=== PATIENT | female | born 1980 | race Caucasian/White ===

== ENCOUNTER → 2017-07-15 09:27 | Outpatient (CLI) | payer BC, SELFPAY ==
[2017-07-15 10:38] LABS: Add Manual Diff / Slide Review NO; Basophils Percent Auto 0.4 % (0-2); Eosinophils Percent Auto 1.8 % (2-4); Hematocrit 38.4 % (36-46); Hemoglobin 13.2 g/dL (12.0-16.0); Lymphocytes Percent Auto 28.1 % (25-40); Mean Corpuscular HGB Conc 34.3 % (30-36); Mean Corpuscular Volume 90.4 fL (80-100); Monocytes Percent Auto 5.9 % (3-14); Neutrophils Absolute Auto 5400 /uL (3000-5900); Neutrophils Percent Auto 63.8 % (50-75); Platelet Count 221 X10^3/uL (150-400); Red Blood Cell Count 4.25 X10^6/uL (4.0-5.2); Red Cell Distribution Width 13.2 % (11.6-14.8); White Blood Cell Count 8.4 X10^3/uL (4.5-11.0)
[2017-07-15 11:12] LABS: Alanine Aminotransferase 28 IU/L (9-52); Albumin 4.2 g/dL (3.5-5.0); Albumin Globulin Ratio 1.5 (1.0-2.8); Alkaline Phosphatase 50 U/L (38-126); Aspartate Aminotransferase 23 IU/L (14-36); BUN Creatinine Ratio 16.7 (6-22); Bilirubin Total 0.4 mg/dL (0.2-1.3); Calcium 8.8 mg/dL (8.4-10.2); Cholesterol 172 mg/dL (140-199); Estimated Glomerular Filt Rate > 60.0 mL/min (>60); Globulin 2.8 g/dL (1.7-4.1); Glucose 95 mg/dL (70-100); HDL Cholesterol 62 mg/dL (40-60); HEMOLYSIS < 15 (0-50); LDL Cholesterol Calculated 92 mg/dL (<100); Potassium 3.9 mmol/L (3.4-5.1); Sodium 142 mmol/L (137-145); Triglycerides 92 mg/dL (35-150)
[2017-07-15 11:46] LABS: HIV 1 and 2 Antibody NEGATIVE (NEGATIVE)
[2017-07-15 12:57] LABS: Urine N gonorrhoeae NOT DETECTED
[2017-07-15 13:06] LABS: Urine Chlamydia NOT DETECTED
[2017-07-19 09:28] LABS: Hepatitis A Antibody IgM NONREACTIVE; Hepatitis Acute Panel Interp 0.01; Hepatitis B Core Antibody IgM NONREACTIVE; Hepatitis B Surface Antigen NONREACTIVE; Hepatitis C Antibody NONREACTIVE
== END ==
PROVIDERS: PCP Family Medicine; Visit Provider Family Medicine
DX: I10 Essential (primary) hypertension (principal); Z72.51 High risk heterosexual behavior
CPT/HCPCS: 36415; 80053; 80061; 80074; 84443; 85025; 86703; 87491; 87591

== ENCOUNTER → 2019-12-03 11:52 | Outpatient (CLI) | payer OTHER, SELFPAY ==
[2019-12-03 12:57] LABS: Alanine Aminotransferase 18 IU/L (<35); Albumin 4.2 g/dL (3.5-5.0); Albumin Globulin Ratio 1.7 (1.0-2.8); Alkaline Phosphatase 50 U/L (38-126); Aspartate Aminotransferase 20 IU/L (14-36); BUN Creatinine Ratio 15.1 (6-22); Bilirubin Total 0.6 mg/dL (0.2-1.3); Blood Urea Nitrogen 11 mg/dL (7-17); Calcium 9.3 mg/dL (8.4-10.2); Carbon Dioxide 28 mmol/L (22-32); Chloride 102 mmol/L (98-107); Cholesterol 173 mg/dL (140-199); Estimated Glomerular Filt Rate > 60.0 mL/min (>60); Globulin 2.5 g/dL (1.7-4.1); Glucose 95 mg/dL (70-100); HDL Cholesterol 75 mg/dL (40-60); HEMOLYSIS < 15 (0-50); LDL Cholesterol Calculated 76 mg/dL (<100); Potassium 4.4 mmol/L (3.4-5.1); Sodium 136 mmol/L (137-145); Total Protein 6.7 g/dL (6.3-8.2); Triglycerides 112 mg/dL (35-150)
[2019-12-03 15:58] LABS: Creatinine Urine Random 205.9 mg/dL
[2019-12-03 16:04] LABS: Microalbumi Creatinin Ratio Ur 7.2 ug/mg CR (<30); Microalbumin Urine Random 1.5 mg/dL (0-1.6)
== END ==
PROVIDERS: Family Provider Family Medicine; PCP Family Medicine; Referring Provider Family Medicine; Visit Provider Family Medicine
DX: I10 Essential (primary) hypertension (principal)
CPT/HCPCS: 36415; 80053; 80061; 82043; 82570

== ENCOUNTER → 2021-03-06 09:21 | Outpatient (CLI) | payer OTHER, SELFPAY ==
[2021-03-06 10:45] LABS: COVID19 -Nasal RAPID POSITIVE (Negative)
== END ==
PROVIDERS: Family Provider Family Medicine; PCP Family Medicine; Visit Provider Nurse Practitioner Family
DX: U07.1 COVID-19 (principal); Z20.822 Contact with and (suspected) exposure to COVID-19
CPT/HCPCS: 87635

== ENCOUNTER → 2022-11-02 10:09 | Outpatient (CLI) | payer OTHER, MEDICAID, SELFPAY ==
--- NOTE | 2022-11-02 10:13 | DI.RAD.S_ITS ---
PROCEDURE: XR SHOULDER RT MIN 2V INDICATIONS: Fell 09/08 - fx R prox humerus; limited ROM; pain TECHNIQUE: 3 views of the shoulder were acquired. COMPARISON: None. FINDINGS: Bones: Comminuted displaced fracture of the proximal right humerus with displacement and callus formation. Soft tissues: No suspicious soft tissue calcifications. IMPRESSION: Healing comminuted and displaced proximal right humerus fracture. Dictated by: Nick Goldstein M.D. on 11/02/2022 at 13:35 Approved by: Nick Goldstein M.D. on 11/02/2022 at 13:36
== END ==
PROVIDERS: Family Provider Family Medicine; PCP Family Medicine; Referring Provider Physician Assistant; Visit Provider Physician Assistant
DX: S42.201D Unspecified fracture of upper end of right humerus, subsequent encounter for fracture with routine healing (principal); M25.511 Pain in right shoulder; W19.XXXD Unspecified fall, subsequent encounter
CPT/HCPCS: 73030

== ENCOUNTER → 2022-12-01 08:58 | Outpatient (CLI) | payer OTHER, MEDICAID, SELFPAY ==
[2022-12-01 09:58] LABS: Add Manual Diff / Slide Review NO; Basophils Absolute Auto 100 /uL (0-100); Basophils Percent Auto 1.3 % (0-2); Eosinophils Absolute Auto 100 /uL (0-450); Hematocrit 38.7 % (36-46); Hemoglobin 13.4 g/dL (12.0-16.0); Lymphocytes Absolute Auto 2600 /uL (1100-4500); Lymphocytes Percent Auto 39.7 % (25-40); Mean Corpuscular HGB Conc 34.5 % (30-36); Mean Corpuscular Hemoglobin 30.7 PG (26-34); Monocytes Absolute Auto 400 /uL (0-900); Neutrophils Absolute Auto 3400 /uL (1500-7000); Platelet Count 223 X10^3/uL (150-400); Red Blood Cell Count 4.35 X10^6/uL (4.0-5.2); Red Cell Distribution Width 12.7 % (11.6-14.8); White Blood Cell Count 6.6 X10^3/uL (4.5-11.0)
[2022-12-01 10:10] LABS: Hemoglobin A1C% w Est Avg Glu 4.8 % (4.0-6.0)
[2022-12-01 10:21] LABS: Alanine Aminotransferase 11 IU/L (<35); Albumin 4.2 g/dL (3.5-5.0); Albumin Globulin Ratio 1.7 (1.0-2.8); Alkaline Phosphatase 60 U/L (38-126); Aspartate Aminotransferase 17 IU/L (14-36); BUN Creatinine Ratio 16.1 (6-22); Bilirubin Total 0.3 mg/dL (0.2-1.3); Blood Urea Nitrogen 10 mg/dL (7-17); Calcium 9.3 mg/dL (8.4-10.2); Carbon Dioxide 26 mmol/L (22-32); Chloride 100 mmol/L (98-107); Cholesterol 181 mg/dL (140-199); Estimated Glomerular Filt Rate > 60 mL/min (>60); Globulin 2.5 g/dL (1.7-4.1); Glucose 88 mg/dL (70-100); HDL Cholesterol 82 mg/dL (40-60); HEMOLYSIS < 15 (0-50); LDL Cholesterol Calculated 84 mg/dL (<100); Potassium 4.2 mmol/L (3.4-5.1); Sodium 136 mmol/L (137-145); Total Protein 6.7 g/dL (6.3-8.2); Triglycerides 73 mg/dL (35-150)
[2022-12-01 10:58] LABS: Microalbumi Creatinin Ratio Ur 10.3 ug/mg CR (<30); Microalbumin Urine Random 0.6 mg/dL (0-1.6)
== END ==
PROVIDERS: Family Provider Family Medicine; PCP Family Medicine; Referring Provider Family Medicine; Visit Provider Family Medicine
DX: I10 Essential (primary) hypertension (principal); E66.9 Obesity, unspecified
CPT/HCPCS: 36415; 80053; 80061; 82043; 82570; 83036; 85025

== ENCOUNTER 2022-12-17 08:15 | Outpatient (RCR) | payer OTHER, MEDICAID, SELFPAY ==
--- NOTE | 2022-11-29 16:05 | PT.OIE ---
Current Diagnoses Pain in right shoulder (11/29/22) Soft tissue disorder, unspecified (11/29/22) Weakness (11/29/22) Unspecified fracture of upper end of right humerus, subsequent encounter for fracture with malunion (11/29/22) Past Surgical History (Last Updated 05/24/22 @ 11:43 by Darcy Reeder MD) History of tonsillectomy Hx of bariatric surgery Status post hernia repair Status post tubal ligation (07/09/16) Visit Care Team Role Provider Type Darcy Reeder MD Family Provider Physician Primary Care Provider Specialty: Family Practice Address: [address] [place] [address], [facility] [[email or web address]] [place], [address] Email: [email or web address] Donn Montana DO Attending Provider Non-Staff Referring Provider Specialty: Orthopedics Address: [address] [place] [address], [id number] Email: Physical Therapy Initial Evaluation PT-OP-A Visit Information Start: 11/25/22 17:23 Freq: Status: Active Protocol: Document 11/29/22 07:59 SAK (Rec: 11/29/22 08:45 SAK [id number]) Out-Patient Physical Therapy Visit Information Visit Information Visit Type Initial Evaluation Visit Start Time 08:00 Visit Stop Time 08:43 Total Visit Minutes 45 Visit Number 1 Evaluation Information Evaluation Date 11/29/22 PT-OP-B Current Condition Start: 11/25/22 17:23 Freq: Status: Active Protocol: Document 11/29/22 07:59 SAK (Rec: 11/29/22 08:45 [facility] [id number]) Current Condition History of Current Condition Onset Date 09/08/22 Current Complaints right shoulder pain and dec ROM History of Current Condition fell 09/08/22 and sustained comminuted and displaced right proximal humerus fracture. Wore sling for 6 weeks. Difficulty with movement overhead, behind back, bad pain top of shoulder and in axilla at night; achy and sharp, interrupting sleep. Denies N/T except in right scapular region. No treatment except told to do wall walks, tried to keep shoulder moving. No ice or heat. X- ray October still not fully healed, MD recommended no lifting anythig more heavy than cell phone. Also c/o clicking in shoulder. Prior Treatments and Tests no treatment Future Testing and Treatments Planned back to Dr. Montana 12/13/22. Treatment Goals Patient/Caregiver Goals Regain full active use of her shoulder to allow her to return to work and all prior activities Prior Functional Status Baseline Function- ADL's Independent Baseline Function- Mobility Independent Baseline Function- Work/School works as hairdresser Baseline Function- Recreation/Hobbies hikes Current Functional Impairments (Reported) Functional Limitations- ADL's painful and limited ROM; unable to reach overhead or behind back Functional Limitations- Work/School unable to work PT-OP-C Subjective Start: 11/25/22 17:23 Freq: Status: Active Protocol: Document 11/29/22 15:40 SAK (Rec: 11/29/22 16:04 [facility] [id number]) Patient Questionnaires Quick Dash- Upper Extremity Quick Dash UE Score 68 OP-PT Pain Assessment Pain Assessment Grid Paper Pain Assessment Grid Completed Yes Location right shoulder and neck Intensity 7 Scale Used Numeric (0 - 10) Description Aching,Sharp,Shooting,With Movement Pain Behaviors Pain Behaviors Facial Grimacing,Guarding, Wincing Comments Pain Comments interrupts sleep PT-OP-H Neuro Start: 11/25/22 17:23 Freq: Status: Active Protocol: Document 11/29/22 15:40 SAK (Rec: 11/29/22 16:04 [facility] [id number]) Sensation Evaluation Gross Sensation Gross Sensation WNL PT-OP-J Posture/Palpation/Skin Start: 11/25/22 17:23 Freq: Status: Active Protocol: Document 11/29/22 07:59 SAK (Rec: 11/29/22 08:45 [facility] [id number]) Posture Evaluation Position Sitting Head/C-Spine Posture Forward Head T-Spine Posture Increased Kyphosis Shoulder Posture (L) Rounded,(R) Rounded Scapula Posture (L) Neutral,(R) Protracted,(R) Winged Arm Posture (L) Internally Rotated,(R) Internally Rotated Palpation Assessment Location right prox humerus Palpation Details bony callus palpated, mod tenderness PT-OP-K Range of Motion Start: 11/25/22 17:23 Freq: Status: Active Protocol: Document 11/29/22 07:59 SAK (Rec: 11/29/22 08:45 [facility] [id number]) Cervical Spine Range of Motion Cervical Spine Active Testing Position Sitting Comments WNL Shoulder Goniometric Range of Motion Shoulder Right Active Shoulder ROM WFL No Flexion 121 Extension 32 Abduction 112 External Rotation at 45 degrees 52 Abduction External Rotation at 0 degrees Abduction 22 Internal Rotation 27 Internal Rotation Behind Back (text) back pocket Left Active Shoulder ROM WFL Yes Shoulder ROM Limitations Shoulder ROM Limitations Soft Tissue Tightness,Bony Restriction,Pain Comments flex 132 passive Elbow/Forearm Range of Motion Elbow/Forearm michael Elbow/Forearm ROM WFL Yes PT-OP-M Strength Start: 11/25/22 17:23 Freq: Status: Active Protocol: Document 11/29/22 15:40 SAK (Rec: 11/29/22 16:04 [facility] [id number]) Shoulder Strength Shoulder Manual Muscle Testing Right Comments grossly 3-/5, no MMT due to acuteness of injury Left Flexion 5 Normal Extension 5 Normal Abduction (C5) 5 Normal Adduction 5 Normal External Rotation 5 Normal Internal Rotation 5 Normal PT-OP-Q Treatments Start: 11/25/22 17:23 Freq: Status: Active Protocol: Document 11/29/22 15:40 [facility] (Rec: 11/29/22 16:04 [facility] [id number]) Self-Care/Home Management Treatment Education Patient Education Home Exercise Program,Pain Management,Posture Other Education issued written HEP PT-OP-R Modalities Start: 11/25/22 17:23 Freq: Status: Active Protocol: Document 11/29/22 15:40 SAK (Rec: 11/29/22 16:04 [facility] [id number]) Hot Pack/Cold Pack Treatment Cold Pack Location right shoulder Treatment Duration (minutes) 10 Comments during pt ed for HEP PT-OP-T Assessment and Plan Start: 11/25/22 17:23 Freq: Status: Active Protocol: Document 11/29/22 15:40 [facility] (Rec: 11/29/22 16:04 [facility] [id number]) Physical Therapy Assessment Rehab Potential Rehabilitation Potential Good Evaluation Complexity Number of Personal Factors/Comorbidities 1-2 Number of Body Systems Impaired 3 Clinical Presentation at Evaluation Evolving Impairments Impairments Activity Tolerance,Pain,ROM, Strength Goals weakness right shoulder Impairment grossly 3-/5 Short Term Goal (STG) Initiate right shoulder strengthening when approved by physician STG Duration 12/30/22 Snf Goal (LTG) Right shoulder strength at least 4/5 all motions to allow patient to return to all usual activities using right shoulder Three Impairment pain as high as 7/10, interupting sleep Short Term Goal (STG) Decrease pain to no greater than 4/10 STG Duration 12/30/22 Snf Goal (LTG) Decrease pain to no greater than 2/10 to allow patient to resume normal sleep pattern LTG Duration 01/29/23 Two Impairment activity tolerance Impairment Quickdash UE disability score 68% Short Term Goal (STG) Decrease Quickdash score to no greater than 50% as measure of improved activity tolerance STG Duration 12/30/22 Snf Goal (LTG) Decrease Quickdash score to no greater than 25% as measure of improved activity tolerance LTG Duration 01/29/23 One Impairment Impaired ROM right shoulder Impairment unable to reach overhead or behind her back to perform ADL 's and work activities Short Term Goal (STG) Patient to be instructed in progressive, individualized HEP for purposes of right shoulder ROM STG Duration 12/30/22 Snf Goal (LTG) Patient to demonstrate full AROM right shoulder LTG Duration 01/29/23 Assessment Summary Assessment Patient referred to PT s/p fall in which she sustained right displaced comminuted right humeral fracture 09/08/22 . x-ray in October showed not fully healed. Referral from physician orders ROM and stretching, hold off on strengthening until returns to physician. Patient limited in all motions with some impingement symptoms with elevation. Patient reporting pain as high as 7/10 in shoulder and neck. 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 POC was discussed and patient is in agreement. Physical Therapy Plan Frequency and Duration Frequency of Treatment 2x/Week Duration of treatment (weeks) 8 Plan of Care Start Date 11/29/22 Plan of Care End Date 01/29/23 Therapeutic Interventions Therapeutic Interventions Home Exercise Program,Manual Therapy,Patient/Caregiver Education,Self-Care/Home Management,Soft Tissue Mobilization,Taping, Therapeutic Activities, Therapeutic Exercises Modalities Cold Pack/Ice Massage,Electric Stimulation,Hot Packs, Infrared Therapy,Iontophoresis ,Ultrasound Next Visit Focus/Plan Next Note Type Treatment Note Next Visit Plan Review HEP, gentle progression of ROM exercises. Manual therapy to improve scapular and soft tissue mobility and dec pain. Modalities PRN.
--- NOTE | 2022-11-29 16:06 | PT.OPPOC ---
Physical, Occupational & Speech Therapy At [facility] Current Diagnoses Pain in right shoulder (11/29/22) Soft tissue disorder, unspecified (11/29/22) Weakness (11/29/22) Unspecified fracture of upper end of right humerus, subsequent encounter for fracture with malunion (11/29/22) Visit Care Team Role Provider Type Darcy Reeder MD Family Provider Physician Primary Care Provider Specialty: Family Practice Address: [address] [place] [address], [facility] [place], [address] Email: [email or web address] Donn Montana DO Attending Provider Non-Staff Referring Provider Specialty: Orthopedics Address: [facility] [place], [address] Email: Plan Of Care PT-OP-T Assessment and Plan Start: 11/25/22 17:23 Freq: Status: Active Protocol: Document 11/29/22 15:40 SAK (Rec: 11/29/22 16:04 SAK [id number]) Physical Therapy Assessment Rehab Potential Rehabilitation Potential Good Evaluation Complexity Number of Personal Factors/Comorbidities 1-2 Number of Body Systems Impaired 3 Clinical Presentation at Evaluation Evolving Impairments Impairments Activity Tolerance,Pain,ROM, Strength Goals weakness right shoulder Impairment grossly 3-/5 Short Term Goal (STG) Initiate right shoulder strengthening when approved by physician STG Duration 12/30/22 Hospital [facility] Goal (LTG) Right shoulder strength at least 4/5 all motions to allow patient to return to all usual activities using right shoulder Three Impairment pain as high as 7/10, interupting sleep Short Term Goal (STG) Decrease pain to no greater than 4/10 STG Duration 12/30/22 Hospital [facility] Goal (LTG) Decrease pain to no greater than 2/10 to allow patient to resume normal sleep pattern LTG Duration 01/29/23 Two Impairment activity tolerance Impairment Quickdash UE disability score 68% Short Term Goal (STG) Decrease Quickdash score to no greater than 50% as measure of improved activity tolerance STG Duration 12/30/22 Hospital Carrier Goal (LTG) Decrease Quickdash score to no greater than 25% as measure of improved activity tolerance LTG Duration 01/29/23 One Impairment Impaired ROM right shoulder Impairment unable to reach overhead or behind her back to perform ADL 's and work activities Short Term Goal (STG) Patient to be instructed in progressive, individualized HEP for purposes of right shoulder ROM STG Duration 12/30/22 Hospital Carrier Goal (LTG) Patient to demonstrate full AROM right shoulder LTG Duration 01/29/23 Assessment Summary Assessment Patient referred to PT s/p fall in which she sustained right displaced comminuted right humeral fracture 09/08/22 . x-ray in October showed not fully healed. Referral from physician orders ROM and stretching, hold off on strengthening until returns to physician. Patient limited in all motions with some impingement symptoms with elevation. Patient reporting pain as high as 7/10 in shoulder and neck. 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 POC was discussed and patient is in agreement. Physical Therapy Plan Frequency and Duration Frequency of Treatment 2x/Week Duration of treatment (weeks) 8 Plan of Care Start Date 11/29/22 Plan of Care End Date 01/29/23 Therapeutic Interventions Therapeutic Interventions Home Exercise Program,Manual Therapy,Patient/Caregiver Education,Self-Care/Home Management,Soft Tissue Mobilization,Taping, Therapeutic Activities, Therapeutic Exercises Modalities Cold Pack/Ice Massage,Electric Stimulation,Hot Packs, Infrared Therapy,Iontophoresis ,Ultrasound Next Visit Focus/Plan Next Note Type Treatment Note Next Visit Plan Review HEP, gentle progression of ROM exercises. Manual therapy to improve scapular and soft tissue mobility and dec pain. Modalities PRN. Plan of Care Dates Plan of Care Start Date 11/29/22 Plan of Care End Date 01/29/23 Electronically Signed by: Lydia Aguirre PT 11/29/22 4801 If you are in agreement with this Plan of Care, please return a signed and dated copy. I have reviewed this Plan of Care and certify that the skilled therapy services above are required to meet the patient?s needs. Physician Signature Date Printed Name and Credentials Clinical Instructor Signature Printed Name and Credentials
--- NOTE | 2022-12-07 18:40 | PT.OTN ---
Current Diagnoses Pain in right shoulder (12/07/22) Soft tissue disorder, unspecified (12/07/22) Weakness (12/07/22) Unspecified fracture of upper end of right humerus, subsequent encounter for fracture with malunion (12/07/22) Physical Therapy Treatment Note PT-OP-A Visit Information Start: 11/25/22: Freq: Status: Active Protocol: Document 12/07/22 07:58 SAK (Rec: 12/07/22 08:46 [facility] [id number]) Out-Patient Physical Therapy Visit Information Visit Information Visit Type Treatment Note Visit Start Time 07:58 Visit Stop Time 08:40 Total Visit Minutes 42 Visit Number 3 PT-OP-B Current Condition Start: 11/25/22: Freq: Status: Active Protocol: Document 12/07/22 07:58 SAK (Rec: 12/07/22 08:46 SAK [id number]) Current Condition History of Current Condition Onset Date 09/08/22 Current Complaints right shoulder pain and dec ROM History of Current Condition fell 09/08/22 and sustained comminuted and displaced right proximal humerus fracture. Wore sling for 6 weeks. Difficulty with movement overhead, behind back, bad pain top of shoulder and in axilla at night; achy and sharp, interrupting sleep. Denies N/T except in right scapular region. No treatment except told to do wall walks, tried to keep shoulder moving. No ice or heat. X- ray Jessica still not fully healed, MD recommended no lifting anythig more heavy than cell phone. Also c/o clicking in shoulder. Prior Treatments and Tests no treatment Future Testing and Treatments Planned back to Dr. Montana 12/13/22. PT-OP-C Subjective Start: 11/25/22: Freq: Status: Active Protocol: Document 12/07/22 07:58 SAK (Rec: 12/07/22 08:46 SAK [id number]) OP-PT Subjective Patient Comments Patient Comments Compliant to HEP. Working not to compensate when using her right UE. Hasn't gotten pulleys yet. Reports she has physician appointment right after PT will need to leave a few min early. Patient Reported Progress Improving PT-OP-H Neuro Start: 11/25/22: Freq: Status: Active Protocol: Document 11/29/22 15:40 SAK (Rec: 11/29/22 16:04 [facility] [id number]) Sensation Evaluation Gross Sensation Gross Sensation WNL PT-OP-J Posture/Palpation/Skin Start: 11/25/22 17:23 Freq: Status: Active Protocol: Document 11/29/22 07:59 [facility] (Rec: 11/29/22 08:45 [facility] [id number]) Posture Evaluation Position Sitting Head/C-Spine Posture Forward Head T-Spine Posture Increased Kyphosis Shoulder Posture (L) Rounded,(R) Rounded Scapula Posture (L) Neutral,(R) Protracted,(R) Winged Arm Posture (L) Internally Rotated,(R) Internally Rotated Palpation Assessment Location right prox humerus Palpation Details bony callus palpated, mod tenderness PT-OP-K Range of Motion Start: 11/25/22 17:23 Freq: Status: Active Protocol: Document 11/29/22 07:59 [facility] (Rec: 11/29/22 08:45 [facility] [id number]) Cervical Spine Range of Motion Cervical Spine Active Testing Position Sitting Comments WNL Shoulder Goniometric Range of Motion Shoulder Right Active Shoulder ROM WFL No Flexion 121 Extension 32 Abduction 112 External Rotation at 45 degrees 52 Abduction External Rotation at 0 degrees Abduction 22 Internal Rotation 27 Internal Rotation Behind Back (text) back pocket Left Active Shoulder ROM WFL Yes Shoulder ROM Limitations Shoulder ROM Limitations Soft Tissue Tightness,Bony Restriction,Pain Comments flex 132 passive Elbow/Forearm Range of Motion Elbow/Forearm michael Elbow/Forearm ROM WFL Yes PT-OP-M Strength Start: 11/25/22 17:23 Freq: Status: Active Protocol: Document 11/29/22 15:40 [facility] (Rec: 11/29/22 16:04 [facility] [id number]) Shoulder Strength Shoulder Manual Muscle Testing Right Comments grossly 3-/5, no MMT due to acuteness of injury Left Flexion 5 Normal Extension 5 Normal Abduction (C5) 5 Normal Adduction 5 Normal External Rotation 5 Normal Internal Rotation 5 Normal PT-OP-Q Treatments Start: 11/25/22 17:23 Freq: Status: Active Protocol: Document 12/07/22 07:58 [facility] (Rec: 12/07/22 08:46 [facility] [id number]) Therapeutic Exercises Supine Exercises serratus punch Comments NEXT SESSION shoulder IR Supine Exercise Name AAROM Equipment Used 1# Reps/Minutes 10 x10 manual and with weight Comments PT assist, cues to not let shoulder lift up (patient holding w/opp hand) should ER Supine Exercise Name AAROM Resistance !# Equipment Used towel, dowel, manual Reps/Minutes 10x Sidelying Exercises open book Reps/Minutes 5x Comments cues for slow, segmental, deep breath. shoulder ER Equipment Used towel roll Reps/Minutes 10x5 Comments added to HEP shoulder abd Reps/Minutes 3X Comments impingement symptoms despite manual scapular rot Sitting Exercises shld ER Equipment Used dowel Reps/Minutes 5x5 Comments towel roll, cues for not rotating spine hor add stretch Comments next session ball roll Comments next session with elevation ( HOB on table elevated 45 deg) pulleys Sitting Exercise Name flex and scaption Reps/Minutes 10x Comments cues for gentle Standing Exercises shoulder IR Equipment Used towel Reps/Minutes 2x30 Comments added to HEP shoulder ext Equipment Used dowel Reps/Minutes 5x10 Comments postural cues shld flex Standing Exercise Name at wall with elbows on foam roller Reps/Minutes 10x counter stretch Reps/Minutes 2x30 Manual Therapy Treatment Soft Tissue Mobilization right shld Body Location deltoids, biceps, UT, pec Mobilization Type Myofascial Release,Rolling, Strumming,Sustained Pressure Intensity/Depth supine Joint Mobilizations GH Direction distraction, inf glide, post glide Comments consider trial next session Self-Care/Home Management Treatment Education Patient Education Home Exercise Program,Joint Protection,Pain Management, Posture Other Education updated [facility] PT-OP-R Modalities Start: 11/25/22 17:23 Freq: Status: Active Protocol: Document 12/07/22 07:58 [facility] (Rec: 12/08/22 13:20 [facility] [id number]) Hot Pack/Cold Pack Treatment Cold Pack Comments to go ice pack due to physician appointment PT-OP-T Assessment and Plan Start: 11/25/22 17:23 Freq: Status: Active Protocol: Document 12/07/22 07:58 [facility] (Rec: 12/07/22 08:46 [facility] [id number]) Physical Therapy Assessment Impairments Impairments Activity Tolerance,Pain,ROM, Strength Goals weakness right shoulder Impairment grossly 3-/5 Short Term Goal (STG) Initiate right shoulder strengthening when approved by physician STG Duration 12/30/22 Group Home Goal (LTG) Right shoulder strength at least 4/5 all motions to allow patient to return to all usual activities using right shoulder Three Impairment pain as high as 7/10, interupting sleep Short Term Goal (STG) Decrease pain to no greater than 4/10 STG Duration 12/30/22 Group Home Goal (LTG) Decrease pain to no greater than 2/10 to allow patient to resume normal sleep pattern LTG Duration 01/29/23 Two Impairment activity tolerance Impairment Quickdash UE disability score 68% Short Term Goal (STG) Decrease Quickdash score to no greater than 50% as measure of improved activity tolerance STG Duration 12/30/22 Group Home Goal (LTG) Decrease Quickdash score to no greater than 25% as measure of improved activity tolerance LTG Duration 01/29/23 One Impairment Impaired ROM right shoulder Impairment unable to reach overhead or behind her back to perform ADL 's and work activities Short Term Goal (STG) Patient to be instructed in progressive, individualized HEP for purposes of right shoulder ROM STG Duration 12/30/22 Information Clerk Goal (LTG) Patient to demonstrate full AROM right shoulder LTG Duration 01/29/23 Assessment Summary Assessment Improving right shoulder functional ROM and use. Good compliance to HEP. Moderate pec tightness with palpable axillary cording. Physical Therapy Plan Frequency and Duration Frequency of Treatment 2x/Week Duration of treatment (weeks) 8 Plan of Care Start Date 11/29/22 Plan of Care End Date 01/29/23 Therapeutic Interventions Therapeutic Interventions Home Exercise Program,Manual Therapy,Patient/Caregiver Education,Self-Care/Home Management,Soft Tissue Mobilization,Taping, Therapeutic Activities, Therapeutic Exercises Modalities Cold Pack/Ice Massage,Electric Stimulation,Hot Packs, Infrared Therapy,Iontophoresis ,Ultrasound Next Visit Focus/Plan Next Note Type Treatment Note Next Visit Plan Add serratus punch, consider trial gentle joint mob. Continue PT to inc ROM and strength right shoulder. Modalities and soft tissue mobilizaiton as needed.
--- NOTE | 2022-12-10 11:33 | PT.OTN ---
Current Diagnoses Pain in right shoulder (12/10/22) Soft tissue disorder, unspecified (12/10/22) Weakness (12/10/22) Unspecified fracture of upper end of right humerus, subsequent encounter for fracture with malunion (12/10/22) Physical Therapy Treatment Note PT-OP-A Visit Information Start: 11/25/22 17:23 Freq: Status: Active Protocol: Document 12/10/22 10:52 SP (Rec: 12/10/22 11:36 SP [id number]) Out-Patient Physical Therapy Visit Information Visit Information Visit Type Treatment Note Visit Start Time 10:52 Visit Stop Time 11:33 Total Visit Minutes 41 Visit Number 4 Number of ENERGY CONSERVATION DIRECTOR Visits 1 Evaluation Information Evaluation Date 11/29/22 PT-OP-B Current Condition Start: 11/25/22: Freq: Status: Active Protocol: Document 12/07/22 07:58 SAK (Rec: 12/07/22 08:46 SAK [id number]) Current Condition History of Current Condition Onset Date 09/08/22 Current Complaints right shoulder pain and dec ROM History of Current Condition fell 09/08/22 and sustained comminuted and displaced right proximal humerus fracture. Wore sling for 6 weeks. Difficulty with movement overhead, behind back, bad pain top of shoulder and in axilla at night; achy and sharp, interrupting sleep. Denies N/T except in right scapular region. No treatment except told to do wall walks, tried to keep shoulder moving. No ice or heat. X- ray Jessica still not fully healed, MD recommended no lifting anythig more heavy than cell phone. Also c/o clicking in shoulder. Prior Treatments and Tests no treatment Future Testing and Treatments Planned back to Dr. [place] 12/13/22. PT-OP-C Subjective Start: 11/25/22 17:23 Freq: Status: Active Protocol: Document 12/10/22 10:52 SP (Rec: 12/10/22 11:36 SP [id number]) OP-PT Subjective Patient Comments Patient Comments Pt reports feeling like getting more motion. Compliant with HEP. PT-OP-H Neuro Start: 11/25/22 17:23 Freq: Status: Active Protocol: Document 11/29/22 15:40 SAK (Rec: 11/29/22 16:04 SAK [id number]) Sensation Evaluation Gross Sensation Gross Sensation WNL PT-OP-J Posture/Palpation/Skin Start: 11/25/22 17:23 Freq: Status: Active Protocol: Document 11/29/22 07:59 [facility] (Rec: 11/29/22 08:45 [facility] [id number]) Posture Evaluation Position Sitting Head/C-Spine Posture Forward Head T-Spine Posture Increased Kyphosis Shoulder Posture (L) Rounded,(R) Rounded Scapula Posture (L) Neutral,(R) Protracted,(R) Winged Arm Posture (L) Internally Rotated,(R) Internally Rotated Palpation Assessment Location right prox humerus Palpation Details bony callus palpated, mod tenderness PT-OP-K Range of Motion Start: 11/25/22 17:23 Freq: Status: Active Protocol: Document 11/29/22 07:59 [facility] (Rec: 11/29/22 08:45 [facility] [id number]) Cervical Spine Range of Motion Cervical Spine Active Testing Position Sitting Comments WNL Shoulder Goniometric Range of Motion Shoulder Right Active Shoulder ROM WFL No Flexion 121 Extension 32 Abduction 112 External Rotation at 45 degrees 52 Abduction External Rotation at 0 degrees Abduction 22 Internal Rotation 27 Internal Rotation Behind Back (text) back pocket Left Active Shoulder ROM WFL Yes Shoulder ROM Limitations Shoulder ROM Limitations Soft Tissue Tightness,Bony Restriction,Pain Comments flex 132 passive Elbow/Forearm Range of Motion Elbow/Forearm michael Elbow/Forearm ROM WFL Yes PT-OP-M Strength Start: 11/25/22 17:23 Freq: Status: Active Protocol: Document 11/29/22 15:40 [facility] (Rec: 11/29/22 16:04 [facility] [id number]) Shoulder Strength Shoulder Manual Muscle Testing Right Comments grossly 3-/5, no MMT due to acuteness of injury Left Flexion 5 Normal Extension 5 Normal Abduction (C5) 5 Normal Adduction 5 Normal External Rotation 5 Normal Internal Rotation 5 Normal PT-OP-Q Treatments Start: 11/25/22 17:23 Freq: Status: Active Protocol: Document 12/10/22 10:52 SP (Rec: 12/10/22 11:36 SP [id number]) Therapeutic Exercises Sidelying Exercises open book Sidelying Exercise Name HEP reviewed Side right Reps/Minutes 8 reps Comments improved scap UR/depression, TS rotation, SP GH gap comfort shoulder ER Sidelying Exercise Name HEP reviewed Side right Resistance AROM Equipment Used towel roll under arm Reps/Minutes 10x5 Comments occ scap tactile cues for retraction/depression shoulder abd Sidelying Exercise Name HEP reviewed Side right Reps/Minutes x8 reps Comments improved with scap depression and serratus press fac scapular clocks Sidelying Exercise Name left sidelying-HEP reviewed Side right Resistance gentle manual Reps/Minutes 2 min Sitting Exercises hor add stretch Sitting Exercise Name added cross body stretch Side right Resistance AAROM Reps/Minutes 3 reps 20 SH Comments cued as needed for form ball roll Sitting Exercise Name added to HEP- stair rail slide FF Side right Resistance AAROM Equipment Used stair railing slide, towel Reps/Minutes 5 reps, 20 SH Comments good feedback stretch, good LT fac into OH reach/stretch Manual Therapy Treatment Soft Tissue Mobilization right shld Body Location deltoids, biceps, UT, pec Mobilization Type Myofascial Release,Rolling, Strumming,Sustained Pressure Intensity/Depth supine Comments manual, Joint Mobilizations R scapulothoracic Direction protraction, retraction, sup/ inf glide, UR Comments tactile cues AAROM, MWM w/ FM: ABD,UR, HABD-improved self performance with HABD, ABD GH Joint R Direction distraction, inf glide, post glide Grade II Comments manual and w/ MWM FF, scaption , ER supine- tolerant comfortable range. PT-OP-R Modalities Start: 11/25/22 17:23 Freq: Status: Active Protocol: Document 12/07/22 07:58 SAK (Rec: 12/08/22 13:20 SAK [id number]) Hot Pack/Cold Pack Treatment Cold Pack Comments to go ice pack due to physician appointment PT-OP-T Assessment and Plan Start: 11/25/22 17:23 Freq: Status: Active Protocol: Document 12/10/22 10:52 SP (Rec: 12/10/22 15:35 SP [id number]) Physical Therapy Assessment Goals weakness right shoulder Impairment grossly 3-/5 Short Term Goal (STG) Initiate right shoulder strengthening when approved by physician STG Duration 12/30/22 Commercial Sales Representative Goal (LTG) Right shoulder strength at least 4/5 all motions to allow patient to return to all usual activities using right shoulder Assessment Summary Assessment Pt improved scapular mobility and decreased UT recruitment with ability to perform HABD, ABD, ER AROM with decreasing verbal and tactile cues but end of tx. Modified AAROM FF RUE on stair rail vs ball roll (doesn't have ball at home)- improve ROM. Still limited ABD / ER. Physical Therapy Plan Frequency and Duration Frequency of Treatment 2x/Week Duration of treatment (weeks) 8 Plan of Care Start Date 11/29/22 Plan of Care End Date 01/29/23 Therapeutic Interventions Therapeutic Interventions Home Exercise Program,Manual Therapy,Patient/Caregiver Education,Self-Care/Home Management,Soft Tissue Mobilization,Taping, Therapeutic Activities, Therapeutic Exercises Modalities Cold Pack/Ice Massage,Electric Stimulation,Hot Packs, Infrared Therapy,Iontophoresis ,Ultrasound Next Visit Focus/Plan Next Note Type Treatment Note Next Visit Plan Add serratus punch, consider trial gentle joint mob. Continue PT to inc ROM and strength right shoulder. Modalities and soft tissue mobilizaiton as needed. next tx show use racquetballon wall post scap, pec for home. Maybe theracane post neck MWM head turns/ nods and neck stretching.
--- NOTE | 2022-12-15 09:06 | PT.OTN ---
Current Diagnoses Pain in right shoulder (12/15/22) Soft tissue disorder, unspecified (12/15/22) Weakness (12/15/22) Unspecified fracture of upper end of right humerus, subsequent encounter for fracture with malunion (12/15/22) Physical Therapy Treatment Note PT-OP-A Visit Information Start: 11/25/22 17:23 Freq: Status: Active Protocol: Document 12/15/22 07:57 SAK (Rec: 12/15/22 09:06 [facility] [id number]) Out-Patient Physical Therapy Visit Information Visit Information Visit Type Treatment Note Visit Start Time 08:01 Visit Stop Time 09:00 Total Visit Minutes 59 Visit Number 5 Number of SAWMILL SUPERVISOR Visits 0 Evaluation Information Evaluation Date 11/29/22 PT-OP-B Current Condition Start: 11/25/22: Freq: Status: Active Protocol: Document 12/07/22 07:58 SAK (Rec: 12/07/22 08:46 SAK [id number]) Current Condition History of Current Condition Onset Date 09/08/22 Current Complaints right shoulder pain and dec ROM History of Current Condition fell 09/08/22 and sustained comminuted and displaced right proximal humerus fracture. Wore sling for 6 weeks. Difficulty with movement overhead, behind back, bad pain top of shoulder and in axilla at night; achy and sharp, interrupting sleep. Denies N/T except in right scapular region. No treatment except told to do wall walks, tried to keep shoulder moving. No ice or heat. X- ray Jessica still not fully healed, MD recommended no lifting anythig more heavy than cell phone. Also c/o clicking in shoulder. Prior Treatments and Tests no treatment Future Testing and Treatments Planned back to Dr. [place] 12/13/22. PT-OP-C Subjective Start: 11/25/22 17:23 Freq: Status: Active Protocol: Document 12/15/22 07:57 SAK (Rec: 12/15/22 09:06 [facility] [id number]) OP-PT Subjective Patient Comments Patient Comments No new c/o. Easier to reach out to the side. Saw orthopedist Tuesday, reported not fully yet, don't carry anything heavier than cell phone. Gentle strengthening. PT-OP-H Neuro Start: 11/25/22 17:23 Freq: Status: Active Protocol: Document 11/29/22 15:40 [facility] (Rec: 11/29/22 16:04 [facility] [id number]) Sensation Evaluation Gross Sensation Gross Sensation WNL PT-OP-J Posture/Palpation/Skin Start: 11/25/22 17:23 Freq: Status: Active Protocol: Document 11/29/22 07:59 [facility] (Rec: 11/29/22 08:45 [facility] [id number]) Posture Evaluation Position Sitting Head/C-Spine Posture Forward Head T-Spine Posture Increased Kyphosis Shoulder Posture (L) Rounded,(R) Rounded Scapula Posture (L) Neutral,(R) Protracted,(R) Winged Arm Posture (L) Internally Rotated,(R) Internally Rotated Palpation Assessment Location right prox humerus Palpation Details bony callus palpated, mod tenderness PT-OP-K Range of Motion Start: 11/25/22 17:23 Freq: Status: Active Protocol: Document 11/29/22 07:59 [facility] (Rec: 11/29/22 08:45 [facility] [id number]) Cervical Spine Range of Motion Cervical Spine Active Testing Position Sitting Comments WNL Shoulder Goniometric Range of Motion Shoulder Right Active Shoulder ROM WFL No Flexion 121 Extension 32 Abduction 112 External Rotation at 45 degrees 52 Abduction External Rotation at 0 degrees Abduction 22 Internal Rotation 27 Internal Rotation Behind Back (text) back pocket Left Active Shoulder ROM WFL Yes Shoulder ROM Limitations Shoulder ROM Limitations Soft Tissue Tightness,Bony Restriction,Pain Comments flex 132 passive Elbow/Forearm Range of Motion Elbow/Forearm michael Elbow/Forearm ROM WFL Yes PT-OP-M Strength Start: 11/25/22 17:23 Freq: Status: Active Protocol: Document 11/29/22 15:40 [facility] (Rec: 11/29/22 16:04 [facility] [id number]) Shoulder Strength Shoulder Manual Muscle Testing Right Comments grossly 3-/5, no MMT due to acuteness of injury Left Flexion 5 Normal Extension 5 Normal Abduction (C5) 5 Normal Adduction 5 Normal External Rotation 5 Normal Internal Rotation 5 Normal PT-OP-Q Treatments Start: 11/25/22 17:23 Freq: Status: Active Protocol: Document 12/15/22 07:57 [facility] (Rec: 12/15/22 09:06 [facility] [id number]) Cardio Equipment Recumbent Stepper (Sci-Fit) Duration (Minutes) 6 Resistance 1 Seat Position 13 Other UE's and LE's, light on arms Therapeutic Exercises Supine Exercises serratus punch Equipment Used 1# Reps/Minutes 10x Comments cues for scapular movement, slow/controlled Prone Exercises I, T, Y Side right Reps/Minutes 5x5 Comments verbal and tactile cues to Sitting Exercises seated cat/cow Reps/Minutes 5x Comments emphasis on cow with thoracic ext ball roll Sitting Exercise Name stair rail slide FF, scaption Side right Resistance AAROM Equipment Used stair railing slide, towel Reps/Minutes 5 reps, 20 SH Comments good feedback stretch, good LT fac into OH reach/stretch trunk rotation Sitting Exercise Name reaching toward opposite knee Equipment Used chair Reps/Minutes 3x Comments with deep breathing Manual Therapy Treatment Soft Tissue Mobilization tennis ball Body Location UT, periscapular self massage Mobilization Type Sustained Pressure,Trigger Point Release Body Position sit Theracane Body Location UE, periscapular self massage Mobilization Type Sustained Pressure,Trigger Point Release Body Position sit Comments with neck stretching right shld Body Location deltoids, biceps, UT, pec Mobilization Type Myofascial Release,Rolling, Strumming,Sustained Pressure Intensity/Depth supine Comments manual, Joint Mobilizations R scapulothoracic Direction protraction, retraction, sup/ inf glide, UR Comments tactile cues AAROM, MWM w/ FM: ABD,UR, HABD-improved self performance with HABD, ABD GH Joint R Direction distraction, inf glide, post glide Grade II Comments manual and w/ MWM FF, scaption , ER supine- tolerant comfortable range. Self-Care/Home Management Treatment Education Other Education updated HO for HEP: prone I,T, Y and serratus punch PT-OP-R Modalities Start: 11/25/22 17:23 Freq: Status: Active Protocol: Document 12/15/22 07:57 [facility] (Rec: 12/15/22 09:06 [facility] [id number]) Hot Pack/Cold Pack Treatment moist heat Location right shoulder, UT Patient Position Hooklying Treatment Duration (minutes) 15 Patient Tolerance Good Comments encouraged trial use at home especially in am, prior to ex, after self massage PT-OP-T Assessment and Plan Start: 11/25/22 17:23 Freq: Status: Active Protocol: Document 12/15/22 07:57 [facility] (Rec: 12/15/22 09:06 [facility] [id number]) Physical Therapy Assessment Impairments Impairments Activity Tolerance,Pain,ROM, Strength Goals weakness right shoulder Impairment grossly 3-/5 Short Term Goal (STG) Initiate right shoulder strengthening when approved by physician STG Duration 12/30/22 Celery Cutter Goal (LTG) Right shoulder strength at least 4/5 all motions to allow patient to return to all usual activities using right shoulder Three Impairment pain as high as 7/10, interupting sleep Short Term Goal (STG) Decrease pain to no greater than 4/10 STG Duration 12/30/22 Celery Cutter Goal (LTG) Decrease pain to no greater than 2/10 to allow patient to resume normal sleep pattern LTG Duration 01/29/23 Two Impairment activity tolerance Impairment Quickdash UE disability score 68% Short Term Goal (STG) Decrease Quickdash score to no greater than 50% as measure of improved activity tolerance STG Duration 12/30/22 Celery Cutter Goal (LTG) Decrease Quickdash score to no greater than 25% as measure of improved activity tolerance LTG Duration 01/29/23 One Impairment Impaired ROM right shoulder Impairment unable to reach overhead or behind her back to perform ADL 's and work activities Short Term Goal (STG) Patient to be instructed in progressive, individualized HEP for purposes of right shoulder ROM STG Duration 12/30/22 Celery Cutter Goal (LTG) Patient to demonstrate full AROM right shoulder LTG Duration 01/29/23 Assessment Summary Assessment shoulder mechanics improving, functional use of right UE improving. Patient highly compliant to HEP. Liked Theracane better than use of ball; plans to get and was given written HO plus updated HEP HO. Physical Therapy Plan Frequency and Duration Frequency of Treatment 2x/Week Duration of treatment (weeks) 8 Plan of Care Start Date 11/29/22 Plan of Care End Date 01/29/23 Therapeutic Interventions Therapeutic Interventions Home Exercise Program,Manual Therapy,Patient/Caregiver Education,Self-Care/Home Management,Soft Tissue Mobilization,Taping, Therapeutic Activities, Therapeutic Exercises Modalities Cold Pack/Ice Massage,Electric Stimulation,Hot Packs, Infrared Therapy,Iontophoresis ,Ultrasound Next Visit Focus/Plan Next Note Type Treatment Note Next Visit Plan Continue PT to inc ROM and strength right shoulder. Modalities and soft tissue mobilizaiton as needed. wall post scap, pec for home. Goniometric measurements.
--- NOTE | 2022-12-17 09:05 | PT.OTN ---
Current Diagnoses Pain in right shoulder (12/17/22) Soft tissue disorder, unspecified (12/17/22) Weakness (12/17/22) Unspecified fracture of upper end of right humerus, subsequent encounter for fracture with malunion (12/17/22) Physical Therapy Treatment Note PT-OP-A Visit Information Start: 11/25/22:23 Freq: Status: Active Protocol: Document 12/17/22 08:25 SP (Rec: 12/17/22 09:07 SP [id number]) Out-Patient Physical Therapy Visit Information Visit Information Visit Type Treatment Note Visit Start Time 08:25 Visit Stop Time 09:05 Total Visit Minutes 40 Visit Number 6 Number of DETAIL SUPERVISOR Visits 1 Evaluation Information Evaluation Date 11/29/22 PT-OP-B Current Condition Start: 11/25/22 Freq: Status: Active Protocol: Document 12/07/22 07:58 SAK (Rec: 12/07/22 08:46 SAK [id number]) Current Condition History of Current Condition Onset Date 09/08/22 Current Complaints right shoulder pain and dec ROM History of Current Condition fell 09/08/22 and sustained comminuted and displaced right proximal humerus fracture. Wore sling for 6 weeks. Difficulty with movement overhead, behind back, bad pain top of shoulder and in axilla at night; achy and sharp, interrupting sleep. Denies N/T except in right scapular region. No treatment except told to do wall walks, tried to keep shoulder moving. No ice or heat. X- ray Jessica still not fully healed, MD recommended no lifting anythig more heavy than cell phone. Also c/o clicking in shoulder. Prior Treatments and Tests no treatment Future Testing and Treatments Planned back to Dr. Montana 12/13/22. PT-OP-C Subjective Start: 11/25/22:23 Freq: Status: Active Protocol: Document 12/17/22 08:25 SP (Rec: 12/17/22 09:07 SP [id number]) OP-PT Subjective Patient Comments Patient Comments Pt reports still lifting no heavier than her phone restrictions to allow healing in R shld. She stated has been a test of her patience and understanding of importance for healing and compliant with all instructions and HEP allowance. SHe states R shoulder sore at arrival. PT-OP-H Neuro Start: 10/05/23 17:23 Freq: Status: Active Protocol: Document 11/29/22 15:40 [facility] (Rec: 11/29/22 16:04 [facility] [id number]) Sensation Evaluation Gross Sensation Gross Sensation WNL PT-OP-J Posture/Palpation/Skin Start: 11/25/22 17:23 Freq: Status: Active Protocol: Document 11/29/22 07:59 [facility] (Rec: 11/29/22 08:45 [facility] [id number]) Posture Evaluation Position Sitting Head/C-Spine Posture Forward Head T-Spine Posture Increased Kyphosis Shoulder Posture (L) Rounded,(R) Rounded Scapula Posture (L) Neutral,(R) Protracted,(R) Winged Arm Posture (L) Internally Rotated,(R) Internally Rotated Palpation Assessment Location right prox humerus Palpation Details bony callus palpated, mod tenderness PT-OP-K Range of Motion Start: 11/25/22 17:23 Freq: Status: Active Protocol: Document 11/29/22 07:59 [facility] (Rec: 11/29/22 08:45 [facility] [id number]) Cervical Spine Range of Motion Cervical Spine Active Testing Position Sitting Comments WNL Shoulder Goniometric Range of Motion Shoulder Right Active Shoulder ROM WFL No Flexion 121 Extension 32 Abduction 112 External Rotation at 45 degrees 52 Abduction External Rotation at 0 degrees Abduction 22 Internal Rotation 27 Internal Rotation Behind Back (text) back pocket Left Active Shoulder ROM WFL Yes Shoulder ROM Limitations Shoulder ROM Limitations Soft Tissue Tightness,Bony Restriction,Pain Comments flex 132 passive Elbow/Forearm Range of Motion Elbow/Forearm michael Elbow/Forearm ROM WFL Yes PT-OP-M Strength Start: 11/25/22 17:23 Freq: Status: Active Protocol: Document 11/29/22 15:40 [facility] (Rec: 11/29/22 16:04 [facility] [id number]) Shoulder Strength Shoulder Manual Muscle Testing Right Comments grossly 3-/5, no MMT due to acuteness of injury Left Flexion 5 Normal Extension 5 Normal Abduction (C5) 5 Normal Adduction 5 Normal External Rotation 5 Normal Internal Rotation 5 Normal PT-OP-Q Treatments Start: 11/25/22 17:23 Freq: Status: Active Protocol: Document 12/17/22 08:25 SP (Rec: 12/17/22 09:07 SP [id number]) Therapeutic Exercises Prone Exercises scap retraction/depression Prone Exercise Name added to HEP Side bilateral Reps/Minutes 10 reps, 5 SH Comments improved scapular ROM and reduction/self corrections no UT, fac LT/rhomboid I, T, Y Prone Exercise Name Y, Ts, rows- Max tactile/VCs in PT cues Side right Equipment Used inPT only Reps/Minutes 5x5 Comments challenged decrease UT recruitment with Ys, Ts, rows Sidelying Exercises open book Sidelying Exercise Name HEP reviewed Side right Reps/Minutes 8 reps Comments improved scap UR/depression, TS rotation, SP GH gap comfort Standing Exercises pec stretch Standing Exercise Name added to HEP- various angles Side left Equipment Used wall use Reps/Minutes 2 min total Comments good stretch ant shld assist posture Manual Therapy Treatment Soft Tissue Mobilization right shld Body Location deltoids, biceps, UT, pec, sub scap, lat Mobilization Type Myofascial Release,Rolling, Strumming,Sustained Pressure Intensity/Depth supine Comments manual, and ed self sustained pressure MWM self application Joint Mobilizations R scapulothoracic Direction protraction, retraction, sup/ inf glide, UR Comments tactile cues AAROM, MWM w/ FM: ABD,UR, HABD-improved self performance with HABD, ABD GH Joint R Direction distraction, inf glide, post glide Grade II Comments manual and w/ MWM FF, scaption , ER supine- tolerant comfortable range. PT-OP-R Modalities Start: 11/25/22 17:23 Freq: Status: Active Protocol: Document 12/15/22 07:57 SAK (Rec: 12/15/22 09:06 SAK [id number]) Hot Pack/Cold Pack Treatment moist heat Location right shoulder, UT Patient Position Hooklying Treatment Duration (minutes) 15 Patient Tolerance Good Comments encouraged trial use at home especially in am, prior to ex, after self massage PT-OP-T Assessment and Plan Start: 11/25/22 17:23 Freq: Status: Active Protocol: Document 12/17/22 08:25 SP (Rec: 12/17/22 09:07 SP [id number]) Physical Therapy Assessment Goals weakness right shoulder Impairment grossly 3-/5 Short Term Goal (STG) Initiate right shoulder strengthening when approved by physician STG Duration 12/30/22 [facility] Solderer Goal (LTG) Right shoulder strength at least 4/5 all motions to allow patient to return to all usual activities using right shoulder Three Impairment pain as high as 7/10, interupting sleep Short Term Goal (STG) Decrease pain to no greater than 4/10 STG Duration 12/30/22 Skilled Nursing Goal (LTG) Decrease pain to no greater than 2/10 to allow patient to resume normal sleep pattern LTG Duration 01/29/23 Two Impairment activity tolerance Impairment Quickdash UE disability score 68% Short Term Goal (STG) Decrease Quickdash score to no greater than 50% as measure of improved activity tolerance STG Duration 12/30/22 Ultr[facility] Hand Solderer Goal (LTG) Decrease Quickdash score to no greater than 25% as measure of improved activity tolerance LTG Duration 01/29/23 One Impairment Impaired ROM right shoulder Impairment unable to reach overhead or behind her back to perform ADL 's and work activities Short Term Goal (STG) Patient to be instructed in progressive, individualized HEP for purposes of right shoulder ROM STG Duration 12/30/22 [facility] Hand Solderer Goal (LTG) Patient to demonstrate full AROM right shoulder LTG Duration 01/29/23 Assessment Summary Assessment Pt improved scapular ROM post manual, tactiles cues for rhomboid and LT recruitment for proper form during modified Is/Rows to just scap retraction prone, while progressing into further ROM able/tolerated. She stated R shld felt more mobile post tx. Physical Therapy Plan Frequency and Duration Frequency of Treatment 2x/Week Duration of treatment (weeks) 8 Plan of Care Start Date 11/29/22 Plan of Care End Date 01/29/23 Therapeutic Interventions Therapeutic Interventions Home Exercise Program,Manual Therapy,Patient/Caregiver Education,Self-Care/Home Management,Soft Tissue Mobilization,Taping, Therapeutic Activities, Therapeutic Exercises Modalities Cold Pack/Ice Massage,Electric Stimulation,Hot Packs, Infrared Therapy,Iontophoresis ,Ultrasound Next Visit Focus/Plan Next Note Type Treatment Note Next Visit Plan Give HO pec stretch for LUE if needed and prone scap retraction, progress into rows /Is next tx. POC: Continue PT to inc ROM and strength right shoulder. Modalities and soft tissue mobilizaiton as needed. wall post scap, pec for home. Goniometric measurements.
--- NOTE | 2023-03-14 09:55 | PT.OPDS ---
Current Diagnoses Pain in right shoulder (12/17/22) Soft tissue disorder, unspecified (12/17/22) Weakness (12/17/22) Unspecified fracture of upper end of right humerus, subsequent encounter for fracture with malunion (12/17/22) Visit Care Team Role Provider Type Darcy Reeder MD Family Provider Physician Primary Care Provider Specialty: Family Practice Address: [address] [place] [address], [facility], [place], [address] Email: [email or web address] Donn Montana DO Attending Provider Non-Staff Referring Provider Specialty: Orthopedics Address: [facility], [place], [address] Email: Visit Number Visit Number 6 Discharge Summary PT-OP-B Current Condition Start: 11/25/22 17:23 Freq: Status: Active Protocol: Document 12/07/22 07:58 SAK (Rec: 12/07/22 08:46 SAK [id number]) Current Condition History of Current Condition Onset Date 09/08/22 Current Complaints right shoulder pain and dec ROM History of Current Condition fell 09/08/22 and sustained comminuted and displaced right proximal humerus fracture. Wore sling for 6 weeks. Difficulty with movement overhead, behind back, bad pain top of shoulder and in axilla at night; achy and sharp, interrupting sleep. Denies N/T except in right scapular region. No treatment except told to do wall walks, tried to keep shoulder moving. No ice or heat. X- ray Jessica still not fully healed, MD recommended no lifting anythig more heavy than cell phone. Also c/o clicking in shoulder. Prior Treatments and Tests no treatment Future Testing and Treatments Planned back to Dr. Montana 12/13/22. PT-OP-C Subjective Start: 11/25/22 17:23 Freq: Status: Active Protocol: Document 12/17/22 08:25 SP (Rec: 12/17/22 09:07 SP [id number]) OP-PT Subjective Patient Comments Patient Comments Pt reports still lifting no heavier than her phone restrictions to allow healing in R shld. She stated has been a test of her patience and understanding of importance for healing and compliant with all instructions and HEP allowance. SHe states R shoulder sore at arrival. PT-OP-H Neuro Start: 11/25/22 17:23 Freq: Status: Active Protocol: Document 11/29/22 15:40 [facility] (Rec: 11/29/22 16:04 [facility] [id number]) Sensation Evaluation Gross Sensation Gross Sensation WNL PT-OP-J Posture/Palpation/Skin Start: 11/25/22 17:23 Freq: Status: Active Protocol: Document 11/29/22 07:59 [facility] (Rec: 11/29/22 08:45 [facility] [id number]) Posture Evaluation Position Sitting Head/C-Spine Posture Forward Head T-Spine Posture Increased Kyphosis Shoulder Posture (L) Rounded,(R) Rounded Scapula Posture (L) Neutral,(R) Protracted,(R) Winged Arm Posture (L) Internally Rotated,(R) Internally Rotated Palpation Assessment Location right prox humerus Palpation Details bony callus palpated, mod tenderness PT-OP-K Range of Motion Start: 11/25/22 17:23 Freq: Status: Active Protocol: Document 11/29/22 07:59 [facility] (Rec: 11/29/22 08:45 [facility] [id number]) Cervical Spine Range of Motion Cervical Spine Active Testing Position Sitting Comments WNL Shoulder Goniometric Range of Motion Shoulder Right Active Shoulder ROM WFL No Flexion 121 Extension 32 Abduction 112 External Rotation at 45 degrees 52 Abduction External Rotation at 0 degrees Abduction 22 Internal Rotation 27 Internal Rotation Behind Back (text) back pocket Left Active Shoulder ROM WFL Yes Shoulder ROM Limitations Shoulder ROM Limitations Soft Tissue Tightness,Bony Restriction,Pain Comments flex 132 passive Elbow/Forearm Range of Motion Elbow/Forearm michael Elbow/Forearm ROM WFL Yes PT-OP-M Strength Start: 11/25/22 17:23 Freq: Status: Active Protocol: Document 11/29/22 15:40 [facility] (Rec: 11/29/22 16:04 [facility] [id number]) Shoulder Strength Shoulder Manual Muscle Testing Right Comments grossly 3-/5, no MMT due to acuteness of injury Left Flexion 5 Normal Extension 5 Normal Abduction (C5) 5 Normal Adduction 5 Normal External Rotation 5 Normal Internal Rotation 5 Normal PT-OP-T Assessment and Plan Start: 11/25/22 17:23 Freq: Status: Active Protocol: Document 03/14/23 09:54 SAK (Rec: 03/14/23 09:55 [facility] [id number]) Physical Therapy Plan Discharge Physical Therapy Discharge Reasons No Longer Attending PT Discharge Comments Patient cancelled last 2 PT appointments and did not schedule further. Has not been seen for 2 months. Will be discharged. Patient may benefit from further PT in the future but will need new referral.
== END 2023-03-17 10:03 | disposition home or self-care (01) ==
LOC: PHYS 08:15
PROVIDERS: Family Provider Family Medicine; PCP Family Medicine; Referring Provider Orthopaedic Surgery; Visit Provider Orthopaedic Surgery
DX: S42.201P Unspecified fracture of upper end of right humerus, subsequent encounter for fracture with malunion (principal); R53.1 Weakness; M79.9 Soft tissue disorder, unspecified; M25.511 Pain in right shoulder
CPT/HCPCS: 97010; 97110; 97140; 97162; 97535